=== PATIENT | female | born 1950 | race African-American/Black ===

== ENCOUNTER → 2016-07-10 | Outpatient (CLI) | payer MEDICARE, MEDICAID ==
[2016-07-10 11:19] LABS: BASOPHILS % 0.8 % (0.0-2.0); EOSINOPHILS % 4.5 % (0.0-5.0); HEMOGLOBIN. 12.1 g/dL (12.0-16.0); LYMPHOCYTES % 40.3 % (20.0-50.0); MEAN CORPUSCULAR HEMOGLOBIN 28.6 pg (28.0-32.0); MEAN CORPUSCULAR HGB CONC 32.8 g/dL (31.0-37.0); MEAN CORPUSCULAR VOLUME 87.1 fL (81.0-99.0); MEAN PLATELET VOLUME 8.6 fl (7.4-10.4); MONOCYTES % 9.3 % (2.0-8.0); NEUTROPHILS % 45.1 % (40.0-76.0); PLATELET 192 x1000/uL (130-400); RED BLOOD CELL COUNT 4.25 mill/uL (4.2-5.4); RED CELL DISTRIBUTION WIDTH 13.9 % (11.6-14.6); WHITE BLOOD COUNT 5.3 x1000/uL (4.5-11.0)
[2016-07-10 12:37] LABS: ALANINE AMINOTRANSFERASE 46 IU/L (13-61); ALBUMIN 3.2 g/dL (3.4-5.0); ANION GAP 11; CALCIUM 8.7 mg/dL (8.5-10.1); CARBON DIOXIDE 22 mEq/L (21-32); CHLORIDE 106 mEq/L (98-107); INDEX HEMOLYSI 1 (1-3); INDEX ICTERIC 1 (1-4); INDEX LIPEMIC 1 (1-3); UREA NITROGEN BLOOD 25 mg/dL (7-21); eGFR > 60 mL/min (>60)
[2016-07-10 13:08] LABS: HEPATITIS B SURFACE AB 6.1 mIU/mL
[2016-07-11 13:45] LABS: HEPATITIS A ANTIBODY TOTAL Positive (Negative)
[2016-07-11 14:48] LABS: HEPATITIS B SURFACE ANTIGEN NEGATIVE
[2016-07-11 15:30] LABS: HEPATITIS C VIR.AB > 11.00 INDEXVAL (0.00-0.80)
[2016-07-12 04:46] LABS: ALPHA FETOPROTEIN TUMOR MARKER 4.9 ng/mL (0.0-8.3)
== END | disposition home or self-care (01) ==
LOC: LAB 10:48
PROVIDERS: ATTEND Internal Medicine Gastroenterology
DX: B18.2 Chronic viral hepatitis C (principal)
CPT/HCPCS: 36415; 80053; 82105; 85025; 85730; 86706; 86708; 86803; 87186; 87340; 87521; 87536

== ENCOUNTER → 2016-08-20 | Outpatient (CLI) | payer MEDICARE, MEDICAID | END | disposition home or self-care (01) | LOC: US 07:26 | PROVIDERS: ATTEND Internal Medicine Gastroenterology | DX: B19.20 Unspecified viral hepatitis C without hepatic coma (principal) | CPT/HCPCS: 76700 ==

== ENCOUNTER → 2016-08-21 | Outpatient (CLI) | payer MEDICARE, MEDICAID | END | disposition home or self-care (01) | LOC: LAB 09:43 | PROVIDERS: ATTEND Internal Medicine Gastroenterology | DX: B18.2 Chronic viral hepatitis C (principal) | CPT/HCPCS: 87186 ==

== ENCOUNTER → 2016-09-10 | Outpatient (CLI) | payer MEDICARE, MEDICAID ==
[2016-09-10 15:45] LABS: BASOPHILS % 1.1 % (0.0-2.0); EOSINOPHILS % 4.1 % (0.0-5.0); HEMATOCRIT. 36.6 % (36.0-48.0); HEMOGLOBIN. 12.1 g/dL (12.0-16.0); LYMPHOCYTES % 39.9 % (20.0-50.0); MEAN CORPUSCULAR VOLUME 87.7 fL (81.0-99.0); MONOCYTES % 8.8 % (2.0-8.0); NEUTROPHILS % 46.1 % (40.0-76.0); PARTIAL THROMBOPLASTIN TIME 26.4 sec (24.0-34.0); PLATELET 178 x1000/uL (130-400); PROTHROMBIN TIME 10.5 sec; RED BLOOD CELL COUNT 4.17 mill/uL (4.2-5.4); RED CELL DISTRIBUTION WIDTH 13.3 % (11.6-14.6)
[2016-09-10 15:47] LABS: CHLORIDE 104 mEq/L (98-107)
[2016-09-10 16:03] LABS: CARBON DIOXIDE 27 mEq/L (21-32); T4 FREE 0.97 ng/dL (0.76-1.46)
[2016-09-10 16:37] LABS: HEPATITIS B SURFACE AB 5.6 mIU/mL
[2016-09-10 16:48] LABS: HEPATITIS B SURFACE ANTIGEN NEGATIVE
[2016-09-12 14:21] LABS: HEPATITIS A ANTIBODY TOTAL Positive (Negative)
== END | disposition home or self-care (01) ==
LOC: EDBD → LAB 14:49
PROVIDERS: ATTEND Internal Medicine Gastroenterology
DX: B18.2 Chronic viral hepatitis C (principal); K57.30 Diverticulosis of large intestine without perforation or abscess without bleeding; E03.9 Hypothyroidism, unspecified
CPT/HCPCS: 36415; 80053; 82105; 84439; 84443; 85025; 85610; 85730; 86706; 86708; 86803; 87186; 87340; 87536

== ENCOUNTER → 2016-09-27 | Outpatient (CLI) | payer MEDICARE, MEDICAID | END | disposition home or self-care (01) | LOC: LAB 09:41 | PROVIDERS: ATTEND Internal Medicine Gastroenterology | DX: Z53.9 Procedure and treatment not carried out, unspecified reason (principal); B18.2 Chronic viral hepatitis C ==

== ENCOUNTER → 2016-11-12 | Outpatient (CLI) | payer MEDICARE, MEDICAID | END | disposition home or self-care (01) | LOC: LAB 09:38 | PROVIDERS: ATTEND Internal Medicine Gastroenterology | DX: B18.2 Chronic viral hepatitis C (principal) | CPT/HCPCS: 87186 ==

== ENCOUNTER → 2017-04-19 | Outpatient (CLI) | payer MEDICARE, MEDICAID ==
[2017-04-19 13:17] LABS: BASOPHILS % 1.4 % (0.0-2.0); EOSINOPHILS % 3.9 % (0.0-5.0); HEMATOCRIT. 37.2 % (36.0-48.0); HEMOGLOBIN. 12.3 g/dL (12.0-16.0); LYMPHOCYTES % 43.4 % (20.0-50.0); MEAN CORPUSCULAR HEMOGLOBIN 29.1 pg (28.0-32.0); MEAN CORPUSCULAR VOLUME 88.3 fL (81.0-99.0); MEAN PLATELET VOLUME 8.5 fl (7.4-10.4); MONOCYTES % 7.6 % (2.0-8.0); NEUTROPHILS % 43.7 % (40.0-76.0); PLATELET 225 x1000/uL (130-400); RED BLOOD CELL COUNT 4.22 mill/uL (4.2-5.4); RED CELL DISTRIBUTION WIDTH 14.1 % (11.6-14.6)
[2017-04-19 13:31] LABS: CHLORIDE 109 mEq/L (98-107); HDL CHOLESTEROL 123 mg/dL (40-59); LDL CHOLESTEROL 69 mg/dL (5-100); PHOSPHORUS 3.1 mg/dL (2.5-4.9); T4 FREE 0.95 ng/dL (0.76-1.46)
[2017-04-19 13:49] LABS: HEPATITIS B SURFACE ANTIGEN NEGATIVE
[2017-04-20 09:10] LABS: HEPATITIS A ANTIBODY TOTAL Positive (Negative)
== END | disposition home or self-care (01) ==
LOC: LAB 12:30
PROVIDERS: ATTEND Internal Medicine Gastroenterology
DX: B18.2 Chronic viral hepatitis C (principal); R63.4 Abnormal weight loss
CPT/HCPCS: 36415; 80053; 80061; 80069; 82172; 83036; 83615; 84439; 84443; 85025; 86706; 86708; 87186; 87340; 87536

== ENCOUNTER 2019-01-05 21:07 | Inpatient (IN) | payer MEDICAID, MEDICARE ==
[~2019-01-05] VITALS: Ht 165.1 cm; Wt 61.2 kg
[2019-01-05] MEDS ORDERED: ACETAMINOPHEN 500MG TABLET PO NR (22:30)
[2019-01-05] MEDS ORDERED: TRAMADOL 50MG TABLET PO ONE (22:45)
[2019-01-05] MEDS ORDERED: HYDROCODONE/ACETAMINOPHEN 5/325MG TABLET PO ONE (23:00)
[2019-01-06 03:00] LABS: BASOPHILS % 1.9 % (0.0-2.0); EOSINOPHILS % 7.2 % (0.0-5.0); HEMATOCRIT. 39.9 % (36.0-48.0); HEMOGLOBIN. 13.1 g/dL (12.0-16.0); LYMPHOCYTES % 45.6 % (20.0-50.0); MEAN CORPUSCULAR VOLUME 88.4 fL (81.0-99.0); MEAN PLATELET VOLUME 8.5 fl (7.4-10.4); MONOCYTES % 11.9 % (2.0-8.0); NEUTROPHILS % 33.4 % (40.0-76.0); PLATELET 210 x1000/uL (130-400); RED BLOOD CELL COUNT 4.51 mill/uL (4.2-5.4); RED CELL DISTRIBUTION WIDTH 14.4 % (11.6-14.6)
[2019-01-06 03:05] LABS: CHLORIDE 110 mEq/L (98-107)
[2019-01-06 03:07] LABS: PROTHROMBIN TIME 10.3 sec (9.6-11.0)
[2019-01-06] MEDS ORDERED: MORPHINE SULFATE 2 MG/ML CPJ (NOT FOR IM USE) IV NR (05:00)
[2019-01-06] MEDS ORDERED: DOCUSATE SODIUM 100MG CAPSULE PO PRN (09:00)
[2019-01-06] MEDS ORDERED: ONDANSETRON HCL 4MG/2ML INJ IV PRN (09:00)
[2019-01-06] MEDS ORDERED: DIPHENHYDRAMINE 50MG/ML VIAL IV PRN (09:00)
[2019-01-06] MEDS ORDERED: MAGNESIUM/ALUMINUM HYDROXIDE/SIMETHICONE 30ML UDC PO PRN (09:00)
[2019-01-06] MEDS ORDERED: IPRATROPIUM/ALBUTEROL 0.5-3(2.5)MG/3ML NEB HHN PRN (09:00)
[2019-01-06] MEDS ORDERED: GUAIFENESIN 200MG/10ML SUGAR FREE UDC PO PRN (09:00)
[2019-01-06] MEDS ORDERED: CLONIDINE 0.1MG TABLET PO PRN (09:00)
[2019-01-06] MEDS ORDERED: ACETAMINOPHEN 325MG TABLET PO PRN (09:00)
[2019-01-06 11:17] VITALS: BP 141/88
[2019-01-06 11:28] LABS: PHOSPHORUS 3.4 mg/dL (2.5-4.9)
[2019-01-06] MEDS: MORPHINE SULFATE 2 MG/ML CPJ (NOT FOR IM USE) IV PRN ×2 (13:02→19:58)
[2019-01-06 20:00] VITALS: BP 121/73
[2019-01-06] MEDS: ATORVASTATIN CALCIUM 20MG TABLET PO SCH (20:02)
[2019-01-07] VITALS: BP 119/64
[2019-01-07 04:00] VITALS: BP_SYST 101; BP_SYST 148; BP_DIAS 73; BP_DIAS 82
[2019-01-07] MEDS: HYDROCODONE/ACETAMINOPHEN 5/325MG TABLET PO PRN ×3 (05:56→18:17)
[2019-01-07 07:28] LABS: BASOPHILS % 1.2 % (0.0-2.0); HEMATOCRIT. 37.4 % (36.0-48.0); HEMOGLOBIN. 12.3 g/dL (12.0-16.0); LYMPHOCYTES % 39.2 % (20.0-50.0); MEAN CORPUSCULAR HEMOGLOBIN 29.2 pg (28.0-32.0); MEAN CORPUSCULAR VOLUME 88.7 fL (81.0-99.0); MEAN PLATELET VOLUME 8.5 fl (7.4-10.4); MONOCYTES % 10.8 % (2.0-8.0); NEUTROPHILS % 40.8 % (40.0-76.0); PLATELET 196 x1000/uL (130-400); RED BLOOD CELL COUNT 4.22 mill/uL (4.2-5.4); RED CELL DISTRIBUTION WIDTH 13.7 % (11.6-14.6)
[2019-01-07 08:00] VITALS: BP 114/66
[2019-01-07 08:37] LABS: CHLORIDE 105 mEq/L (98-107)
[2019-01-07 08:48] LABS: HDL CHOLESTEROL 98 mg/dL (40-59); LDL CHOLESTEROL 72 mg/dL (5-100)
[2019-01-07 12:00] VITALS: BP 126/81
[2019-01-07 16:00] VITALS: BP 107/64
[2019-01-07 20:00] VITALS: BP 113/74
[2019-01-07] MEDS: ATORVASTATIN CALCIUM 20MG TABLET PO SCH (20:52)
[2019-01-07] MEDS: OXYCODONE HCL/ACETAMINOPHEN 5/325MG TABLET PO PRN (20:53)
[2019-01-08] VITALS: BP 120/66
[2019-01-08] MEDS: OXYCODONE HCL/ACETAMINOPHEN 5/325MG TABLET PO PRN ×5 (00:53→20:38)
[2019-01-08 04:00] VITALS: BP 114/56
[2019-01-08 08:00] VITALS: BP_SYST 147; BP_SYST 150; BP_DIAS 84; BP_DIAS 87
[2019-01-08 12:00] VITALS: BP 119/70
[2019-01-08 16:00] VITALS: BP 133/76
[2019-01-08 20:00] VITALS: BP 124/82
[2019-01-08] MEDS: ATORVASTATIN CALCIUM 20MG TABLET PO SCH (20:38)
[2019-01-09] VITALS: BP 105/86
[2019-01-09] MEDS: OXYCODONE HCL/ACETAMINOPHEN 5/325MG TABLET PO PRN ×4 (00:42→14:49)
[2019-01-09 04:00] VITALS: BP 129/54
[2019-01-09 08:00] VITALS: BP 117/61
[2019-01-09 08:34] VITALS: BP 117/61
[2019-01-09 12:00] VITALS: BP 125/66
[2019-01-09 14:49] VITALS: BP 125/66
== END 2019-01-09 15:30 | disposition home or self-care (01) | DRG 563 ==
LOC: ER 21:07 → 6EST 01-06 02:54 → ENRESERV 01-06 07:02 → 6EST 01-08 13:26
PROVIDERS: ADMIT Internal Medicine; ATTEND Internal Medicine
DX: S82.202A Unspecified fracture of shaft of left tibia, initial encounter for closed fracture (principal); E78.5 Hyperlipidemia, unspecified; I10 Essential (primary) hypertension; W01.0XXA Fall on same level from slipping, tripping and stumbling without subsequent striking against object, initial encounter; W18.39XA Other fall on same level, initial encounter; G89.29 Other chronic pain; F17.210 Nicotine dependence, cigarettes, uncomplicated; Z88.0 Allergy status to penicillin; Y93.89 Activity, other specified; Y92.89 Other specified places as the place of occurrence of the external cause; Y99.8 Other external cause status
CPT/HCPCS: 36415; 73562; 73700; 80061; 83735; 84100; 84443; 86850; 86900; 93005; 93970; 97116; 97162; 97166; 97760; 99285; A4565; C1893; J2270; L1830

== ENCOUNTER 2019-03-25 04:17 | Emergency (ER) | payer MEDICARE ==
[~2019-03-25] VITALS: Ht 167.6 cm; Wt 64.0 kg
[2019-03-25 04:26] VITALS: BP 141/88
== END 2019-03-25 05:13 | disposition left against medical advice (07) ==
LOC: ER 04:17
DX: M25.562 Pain in left knee (principal); Z53.21 Procedure and treatment not carried out due to patient leaving prior to being seen by health care provider

== ENCOUNTER 2020-09-25 08:59 | Emergency (ER) | payer MEDICARE, MEDICAID ==
[~2020-09-25] VITALS: Ht 165.1 cm; Wt 60.0 kg
[2020-09-25 10:13] LABS: BASOPHILS % 1.2 % (0.0-2.0); EOSINOPHILS % 4.4 % (0.0-5.0); HEMATOCRIT. 40.8 % (36.0-48.0); HEMOGLOBIN. 13.9 g/dL (12.0-16.0); LYMPHOCYTES % 50.7 % (20.0-50.0); MEAN CORPUSCULAR HEMOGLOBIN 29.5 pg (28.0-32.0); MEAN CORPUSCULAR VOLUME 86.7 fL (81.0-99.0); MEAN PLATELET VOLUME 8.4 fl (7.4-10.4); MONOCYTES % 9.3 % (2.0-8.0); NEUTROPHILS % 34.4 % (40.0-76.0); PLATELET 210 x1000/uL (130-400); RED BLOOD CELL COUNT 4.71 mill/uL (4.2-5.4); RED CELL DISTRIBUTION WIDTH 14.4 % (11.6-14.6)
[2020-09-25 10:15] LABS: CLARITY URINE CLEAR (CLEAR); COLOR URINE YELLOW (YELLOW); KETONES URINE NEGATIVE (NEGATIVE); LEUKOCYTE ESTERASE URINE NEGATIVE (NEGATIVE); NITRITE URINE NEGATIVE (NEGATIVE); OCCULT BLOOD URINE TRACE (NEGATIVE); PH URINE 6.5 (4.5-8.0); PROTEIN URINE 1+ (NEGATIVE)
[2020-09-25 10:16] LABS: CHLORIDE 107 mEq/L (98-107)
[2020-09-25 11:22] VITALS: BP 155/92
== END 2020-09-25 11:23 | disposition home or self-care (01) ==
LOC: ER 09:25
DX: R60.9 Edema, unspecified (principal); N28.9 Disorder of kidney and ureter, unspecified; I10 Essential (primary) hypertension; Z88.0 Allergy status to penicillin
CPT/HCPCS: 36415; 80053; 81003; 85025; 93005; 99284

== ENCOUNTER 2022-08-06 03:59 | Inpatient (IN) | payer MEDICARE, MEDICAID ==
[~2022-08-06] VITALS: Ht 157.5 cm; Wt 65.0 kg
[2022-08-06] MEDS ORDERED: IPRATROPIUM/ALBUTEROL 0.5-3(2.5)MG/3ML NEB HHN ONE (05:15)
[2022-08-06] MEDS ORDERED: MAGNESIUM 2 G PREMIX 50 ML IV ONE (05:30)
[2022-08-06] MEDS ORDERED: METHYLPREDNISOLONE SOD SUCC 125 MG/2 ML VIAL IV ONE (05:30)
[2022-08-06] MEDS ORDERED: PREDNISONE 20MG TABLET PO ONE (07:45)
[2022-08-06 10:37] LABS: BASOPHILS % 0.3 % (0.0-2.0); HEMATOCRIT. 37.2 % (36.0-48.0); HEMOGLOBIN. 12.2 g/dL (12.0-16.0); LYMPHOCYTES % 23.2 % (20.0-50.0); MEAN CORPUSCULAR VOLUME 88.3 fL (81.0-99.0); MEAN PLATELET VOLUME 8.1 fl (7.4-10.4); NEUTROPHILS % 65.5 % (40.0-76.0); PLATELET 201 x1000/uL (130-400); RED BLOOD CELL COUNT 4.21 mill/uL (4.2-5.4); RED CELL DISTRIBUTION WIDTH 14.5 % (11.6-14.6)
[2022-08-06 10:45] LABS: CHLORIDE 108 mEq/L (98-107)
[2022-08-06] MEDS ORDERED: AZITHROMYCIN 500MG/250ML 250 ML IV NR (13:15)
[2022-08-06] MEDS ORDERED: CEFTRIAXONE 1GM PREMIX 50 ML IV NR (13:15)
[2022-08-06] MEDS ORDERED: CEFTRIAXONE 1GM PREMIX 50 ML IV SCH (15:00)
[2022-08-06] MEDS ORDERED: IPRATROPIUM/ALBUTEROL 0.5-3(2.5)MG/3ML NEB HHN PRN (15:00)
[2022-08-06] MEDS ORDERED: ONDANSETRON HCL 4MG/2ML INJ IV PRN (15:00)
[2022-08-06] MEDS ORDERED: CLONIDINE 0.1MG TABLET PO PRN (15:00)
[2022-08-06] MEDS ORDERED: DIPHENHYDRAMINE 50MG/ML VIAL IV PRN (15:00)
[2022-08-06 20:00] VITALS: BP 143/80
[2022-08-06] MEDS ORDERED: AZITHROMYCIN 500 MG in DEXT 5% WATER 250 ML IV SCH (21:00)
[2022-08-06] MEDS ORDERED: DEXTROSE 50% WATER 50ML SYRINGE IV PRN (22:30)
[2022-08-06] MEDS: METHYLPREDNISOLONE SOD SUCC 125 MG/2 ML VIAL IV SCH (22:32)
[2022-08-06] MEDS: GUAIFENESIN 600MG ER TABLET PO SCH (22:33)
[2022-08-07] MEDS: METHYLPREDNISOLONE SOD SUCC 125 MG/2 ML VIAL IV SCH (03:00)
[2022-08-07 04:00] VITALS: BP 148/78
[2022-08-07] MEDS: BLOOD SUGAR DIAGNOSTIC STRIP TEST SCH ×4 (06:56→20:23)
[2022-08-07 08:00] VITALS: BP_SYST 150; BP_DIAS 90; BP_DIAS 94
[2022-08-07] MEDS: INSULIN LISPRO 100 UNITS/ML SUBCUT SCH ×4 (08:10→20:23)
[2022-08-07] MEDS: GUAIFENESIN 600MG ER TABLET PO SCH ×2 (09:32→20:25)
[2022-08-07] MEDS: FAMOTIDINE 20MG TABLET PO SCH (11:22)
[2022-08-07] MEDS: AZITHROMYCIN 500 MG TABLET PO SCH (11:22)
[2022-08-07] MEDS: PREDNISONE 20MG TABLET PO SCH ×2 (11:22→20:25)
[2022-08-07 12:00] VITALS: BP 135/72
[2022-08-07] MEDS ORDERED: BENZONATATE 100MG CAPSULE PO PRN (14:15)
[2022-08-07 16:00] VITALS: BP 138/72
[2022-08-07] MEDS ORDERED: AZITHROMYCIN 500 MG in DEXT 5% WATER 250 ML IV SCH (16:00)
[2022-08-07 20:00] VITALS: BP_SYST 136; BP_SYST 161; BP_DIAS 67; BP_DIAS 84
[2022-08-08] VITALS (7 sets, daily range): BP systolic 114–147; BP diastolic 66–89
[2022-08-08] MEDS: BLOOD SUGAR DIAGNOSTIC STRIP TEST SCH ×4 (05:56→20:29)
[2022-08-08] MEDS: INSULIN LISPRO 100 UNITS/ML SUBCUT SCH ×4 (07:58→20:29)
[2022-08-08] MEDS: GUAIFENESIN 600MG ER TABLET PO SCH ×2 (09:03→20:28)
[2022-08-08] MEDS: PREDNISONE 20MG TABLET PO SCH ×2 (09:03→20:28)
[2022-08-08] MEDS: FAMOTIDINE 20MG TABLET PO SCH (09:03)
[2022-08-08] MEDS: AZITHROMYCIN 500 MG TABLET PO SCH (09:03)
[2022-08-08] MEDS ORDERED: ALBU18HF2 IH (11:46)
[2022-08-08] MEDS ORDERED: FAMO20TA8 MT (11:46)
[2022-08-08] MEDS ORDERED: NICO-645 TP (11:46)
[2022-08-08] MEDS ORDERED: GUAI600T44 MT (11:46)
[2022-08-08] MEDS ORDERED: P20 MT (11:46)
[2022-08-08 15:54] LABS: CLARITY URINE CLEAR (CLEAR); COLOR URINE YELLOW (YELLOW); KETONES URINE NEGATIVE (NEGATIVE); LEUKOCYTE ESTERASE URINE TRACE (NEGATIVE); NITRITE URINE NEGATIVE (NEGATIVE); OCCULT BLOOD URINE 3+ (NEGATIVE); PROTEIN URINE 2+ (NEGATIVE); SPECIFIC GRAVITY URINE 1.014 (1.005-1.030); UROBILINOGEN URINE 0.2 E.U./dL (0.2-1.0)
[2022-08-08 16:20] LABS: *AMPHETAMINES SCREEN URINE NEGATIVE (NEGATIVE); *BARBITURATES SCREEN URINE NEGATIVE (NEGATIVE); *BENZODIAZEPINES SCREEN URINE NEGATIVE (NEGATIVE); *COCAINE SCREEN URINE NEGATIVE (NEGATIVE); CANNABINOID URINE SCREEN PRESUMTIVE POSITIVE (NEGATIVE); METHADONE URINE SCREEN NEGATIVE (NEGATIVE); OPIATES URINE SCREEN NEGATIVE (NEGATIVE); PHENCYCLIDINE URINE SCREEN NEGATIVE (NEGATIVE)
[2022-08-08 18:17] LABS: HEMATOCRIT. 38.5 % (36.0-48.0); HEMOGLOBIN. 12.5 g/dL (12.0-16.0); LYMPHOCYTES % 11.8 % (20.0-50.0); MEAN CORPUSCULAR HEMOGLOBIN 28.6 pg (28.0-32.0); MEAN CORPUSCULAR VOLUME 88.3 fL (81.0-99.0); MEAN PLATELET VOLUME 8.9 fl (7.4-10.4); MONOCYTES % 5.8 % (2.0-8.0); NEUTROPHILS % 82.4 % (40.0-76.0); PLATELET 180 x1000/uL (130-400); RED BLOOD CELL COUNT 4.36 mill/uL (4.2-5.4); RED CELL DISTRIBUTION WIDTH 14.1 % (11.6-14.6)
[2022-08-08 18:25] LABS: CHLORIDE 106 mEq/L (98-107)
[2022-08-09] VITALS (7 sets, daily range): BP systolic 111–161; BP diastolic 75–92
[2022-08-09] MEDS: BLOOD SUGAR DIAGNOSTIC STRIP TEST SCH ×4 (05:41→20:10)
[2022-08-09] MEDS: INSULIN LISPRO 100 UNITS/ML SUBCUT SCH ×4 (05:41→20:10)
[2022-08-09] MEDS: AZITHROMYCIN 500 MG TABLET PO SCH (08:53)
[2022-08-09] MEDS: FAMOTIDINE 20MG TABLET PO SCH (08:54)
[2022-08-09] MEDS: GUAIFENESIN 600MG ER TABLET PO SCH ×2 (08:54→21:13)
[2022-08-09] MEDS: PREDNISONE 20MG TABLET PO SCH ×2 (08:54→21:13)
[2022-08-09] MEDS ORDERED: ACETAMINOPHEN 650MG/20.3ML UDC PO PRN (16:00)
[2022-08-09] MEDS: ACETAMINOPHEN 325MG TABLET PO PRN (17:43)
[2022-08-10] VITALS: BP 118/77
[2022-08-10 04:00] VITALS: BP 140/83
[2022-08-10] MEDS: INSULIN LISPRO 100 UNITS/ML SUBCUT SCH ×2 (05:47→12:32)
[2022-08-10] MEDS: BLOOD SUGAR DIAGNOSTIC STRIP TEST SCH ×2 (05:47→12:32)
[2022-08-10 08:00] VITALS: BP 128/63
[2022-08-10] MEDS: ACETAMINOPHEN 325MG TABLET PO PRN (08:33)
[2022-08-10] MEDS: PREDNISONE 20MG TABLET PO SCH (08:33)
[2022-08-10] MEDS: AZITHROMYCIN 500 MG TABLET PO SCH (08:33)
[2022-08-10] MEDS: FAMOTIDINE 20MG TABLET PO SCH (08:33)
[2022-08-10] MEDS: GUAIFENESIN 600MG ER TABLET PO SCH (08:33)
[2022-08-10 12:00] VITALS: BP 140/70
[2022-08-10 16:00] VITALS: BP 130/70
== END 2022-08-10 17:39 | disposition home health service (06) | DRG 189 ==
LOC: ER 03:59 → 7WST 11:58 → EDBEDREQTM 11:59 → EDBEDREQ 11:59 → 7WST 19:20
PROVIDERS: ADMIT Family Medicine Adult Medicine; ATTEND Family Medicine Adult Medicine
DX: J96.00 Acute respiratory failure, unspecified whether with hypoxia or hypercapnia (principal); J44.1 Chronic obstructive pulmonary disease with (acute) exacerbation; I10 Essential (primary) hypertension; K76.9 Liver disease, unspecified; F17.200 Nicotine dependence, unspecified, uncomplicated; Z87.09 Personal history of other diseases of the respiratory system; Z88.0 Allergy status to penicillin
CPT/HCPCS: 36415; 71045; 80048; 80053; 80305; 81003; 82962; 83880; 84145; 84484; 85025; 85379; 93005; 93306; 93970; 99285; C1893; J0456; J0696; J2930; J7060; J7512